=== PATIENT | female | born 2000 | race Hispanic/Latino ===

== ENCOUNTER 2024-11-28 18:18 | Emergency (ER) | payer OTHER ==
[~2024-11-28] VITALS: Ht 160 cm; Wt 61.2 kg
[2024-11-28 18:41] VITALS: TEMP 98.5
[2024-11-28] MEDS ORDERED: Morphine 4mg INJECTION 4 MG/ML INJ IV ONE (19:00)
[2024-11-28 19:11] LABS: BASOPHILS % 0.3 % (0.0-1.0); EOSINOPHILS # (AUTO) 0.1 (0.0-0.4); EOSINOPHILS % 1.6 % (0.0-6.0); HEMATOCRIT 40.1 % (34.2-44.1); HEMOGLOBIN 12.4 g/dL (12.0-16.0); LYMPHOCYTES # (AUTO) 2.9 (1.0-3.2); LYMPHOCYTES % 40.5 % (18.0-39.1); MEAN CORPUSCULAR HEMOGLOBIN 30.4 pg (28-32); MEAN CORPUSCULAR HGB CONC 30.9 g/dL (31-35); MEAN CORPUSCULAR VOLUME 98.3 fL (81-99); MONOCYTES # (AUTO) 0.5 (0.2-0.8); MONOCYTES % 7.6 % (4.4-11.3); NEUTROPHILS # (AUTO) 3.5 (2.1-6.9); NEUTROPHILS % 49.9 % (38.7-80.0); PLATELET COUNT 213 x10e3/uL (140-360); RED BLOOD COUNT 4.08 x10e6/uL (3.6-5.1); WHITE BLOOD COUNT 7.07 x10e3/uL (4.8-10.8)
[2024-11-28 19:30] LABS: CLARITY,URINE CLOUDY (CLEAR); COLOR,URINE YELLOW (YELLOW)
[2024-11-28 19:31] LABS: AMORPHOUS SEDIMENT,URINE MODERATE (FEW); BACTERIA,URINE FEW /HPF; BILIRUBIN,URINE NEGATIVE (NEGATIVE); EPITHELIAL CELLS,URINE FEW /LPF; GLUCOSE, URINE NEGATIVE (NEGATIVE); KETONES,URINE NEGATIVE (NEGATIVE); LEUKOCYTE ESTERASE ,URINE NEGATIVE (NEGATIVE); NITRITE,URINE NEGATIVE (NEGATIVE); PH,URINE 7 (5 - 7); PROTEIN,URINE DIPSTICK NEGATIVE (NEGATIVE); RBC,URINE 0-5 /HPF (0-5); URINE UROBILINOGEN 0.2 mg/dL (0.2 - 1); WBC,URINE (MAN) 0-5 /HPF (0-5)
[2024-11-28 19:32] LABS: ALBUMIN 4.3 g/dL (3.5-5.0); ALBUMIN/GLOBULIN RATIO 1.4 (0.8-2.0); ANION GAP 15.3 mmol/L (8-16); BILIRUBIN,TOTAL 0.5 mg/dL (0.2-1.2); CALCIUM 9.8 mg/dL (8.4-10.2); CREATININE, SERUM 0.86 mg/dL (0.57-1.11); LIPASE 52 U/L (8-78); POTASSIUM 4.3 mmol/L (3.5-5.1); TOTAL PROTEIN 7.4 g/dL (6.5-8.1)
[2024-11-28] MEDS ORDERED: IOPAMIDOL 370 MG/ML 100 ML INFUS..BTL INJ ONE (19:41)
[2024-11-28] MEDS: ONDANSETRON HCL INJ 2MG/ML 2ML 2 MG/ML VIAL IV STA (20:30)
[2024-11-28] MEDS: SODIUM CHLORIDE 0.9% 1000ML 1,000 ML IV ONE (20:30)
[2024-11-28] MEDS: DICYCLOMINE HCL 20 MG/2 ML VIAL IM ONE (20:31)
[2024-11-28] MEDS: KETOROLAC TROMETHAMINE 30 MG/ML VIAL IV STA (20:31)
[2024-11-28 21:45] VITALS: PULSE 78; RESP 19
[2024-11-28 23:04] VITALS: BP 122/63; PULSE 79; RESP 17; TEMP 98.1; O2SAT 98
== END 2024-11-28 23:11 | disposition home or self-care (01) ==
LOC: EDBD 18:18 → ER 18:59
DX: R10.11 Right upper quadrant pain (principal); R10.31 Right lower quadrant pain; K80.20 Calculus of gallbladder without cholecystitis without obstruction; R11.2 Nausea with vomiting, unspecified
CPT/HCPCS: 36415; 74177; 76705; 80053; 81001; 83690; 84702; 85025; 99284; J0500; J1885; J2405; J7030; Q9967